=== PATIENT | female | born 1935 | race Caucasian/White ===

== ENCOUNTER 2023-09-05 13:56 | Inpatient (IN) | payer MEDICARE, OTHER | END 2023-09-09 10:30 | disposition home or self-care (01) | DRG 690 | LOC: ED 13:56 → MS 22:38 | PROVIDERS: ADMIT Internal Medicine | DX: N39.0 Urinary tract infection, site not specified (principal); N17.9 Acute kidney failure, unspecified; K43.0 Incisional hernia with obstruction, without gangrene; K43.6 Other and unspecified ventral hernia with obstruction, without gangrene; K52.9 Noninfective gastroenteritis and colitis, unspecified; M16.0 Bilateral primary osteoarthritis of hip; K62.89 Other specified diseases of anus and rectum; E11.51 Type 2 diabetes mellitus with diabetic peripheral angiopathy without gangrene; I12.9 Hypertensive chronic kidney disease with stage 1 through stage 4 chronic kidney disease, or unspecified chronic kidney disease; E11.22 Type 2 diabetes mellitus with diabetic chronic kidney disease; E78.5 Hyperlipidemia, unspecified; K59.00 Constipation, unspecified; E66.9 Obesity, unspecified; H91.90 Unspecified hearing loss, unspecified ear; E87.6 Hypokalemia; Z90.710 Acquired absence of both cervix and uterus; Z98.1 Arthrodesis status; Z90.89 Acquired absence of other organs; Z90.49 Acquired absence of other specified parts of digestive tract; Z79.811 Long term (current) use of aromatase inhibitors; Z79.02 Long term (current) use of antithrombotics/antiplatelets; Z79.4 Long term (current) use of insulin; Z79.899 Other long term (current) drug therapy; Z88.8 Allergy status to other drugs, medicaments and biological substances; Z71.3 Dietary counseling and surveillance; Z11.52 Encounter for screening for COVID-19; Z68.23 Body mass index [BMI] 23.0-23.9, adult ==